=== PATIENT | female | born 1945 | race Caucasian/White ===

== ENCOUNTER 2019-12-11 04:41 | Outpatient (CLI) | payer BC, OTHER ==
[2019-12-12 14:01] LABS: SARS-CoV-2 MS2 Positive; SARS-CoV-2 N Gene Negative; SARS-CoV-2 S Gene Negative; SARS-CoV-2 orf1ab Negative
== END 2019-12-11 04:42 | disposition home or self-care (01) ==
LOC: LABBT 04:41
PROVIDERS: ATTEND Ophthalmology Retina Specialist
DX: Z01.812 Encounter for preprocedural laboratory examination (principal); Z11.59 Encounter for screening for other viral diseases; H35.371 Puckering of macula, right eye
CPT/HCPCS: 87635; U0003

== ENCOUNTER 2019-12-14 05:54 | Day surgery (SDC) | payer BC ==
[2019-12-08 11:30] VITALS: BMI 24.2
[2019-12-14] MEDS ORDERED: Fluorouracil 100 MG, Enoxaparin Sodium 25 MG, EPINEPHrine 0.3 MG in Ophthalmic Irrigati... IRR SCH (06:00)
[2019-12-14] MEDS ORDERED: Cyclopentolate 1% Opth Drop 2 ML BOT ONE (06:00)
[2019-12-14] MEDS ORDERED: Phenylephrine 2.5% Ophth Soln 5 ML BOT ONE (06:00)
[2019-12-14] MEDS ORDERED: Fentanyl 100 MCG/2 ML VIAL ONE (06:14)
[2019-12-14] MEDS ORDERED: Midazolam HCl 2 mg/2 ml Vial ONE (06:14)
[2019-12-14] MEDS ORDERED: PROPOFOL 20 ML ONE (06:15)
[2019-12-14] MEDS ORDERED: CEFAZOLIN 1 GM VIAL ONE (12:24)
[2019-12-14] MEDS ORDERED: Indocyanine Green 25 MG/10 ML VIAL ONE (12:24)
[2019-12-14] MEDS ORDERED: Enoxaparin Sodium 30 MG/0.3 ML SYRINGE ONE (12:24)
[2019-12-14] MEDS ORDERED: Lidocaine 1% PF 5 ML VIAL ONE (12:24)
[2019-12-14] MEDS ORDERED: Lidocaine 4% PF 5 ML AMP ONE (12:24)
[2019-12-14] MEDS ORDERED: Bupivacaine PF 0.75% SDV 10 ML ONE (12:24)
[2019-12-14] MEDS ORDERED: Maxitrol 0.1% Opth Oint 3.5 GM TUBE ONE (12:24)
--- NOTE | 2019-12-15 13:28 | OP ---
DATE OF PROCEDURE: 12/14/2019 PREOPERATIVE DIAGNOSIS: Epiretinal membrane, right eye. POSTOPERATIVE DIAGNOSIS: Epiretinal membrane, right eye. PROCEDURES PERFORMED: Pars plana vitrectomy and membrane peel, right eye. ANESTHESIA: Local with monitored anesthesia care. DESCRIPTION OF PROCEDURE: The patient was identified in the preoperative holding area. Appropriate informed consent for the planned surgical procedure on the right eye had been obtained. The patient was transported to the operative suite. Appropriate cardiopulmonary monitoring was established. Local anesthesia was obtained. Retrobulbar modified Van Lint lid block using 50:50 mixture of 4% lidocaine and 0.75% bupivacaine. The patient was prepped and draped in usual sterile manner for ophthalmic surgery on the right eye. Lid speculum was placed in the right eye. A 25-gauge trocar was placed in the conjunctiva and sclera superotemporally, inferotemporally, and supranasally. Light pipe vitreous cutter inserted to the eye. Core vitrectomy was performed. Indocyanine green dye was infused on the posterior pole x1 identifying the epiretinal membrane. This was elevated. Edges were elevated using membrane scraper and peeled across the macula using end-gripping forceps. Indirect ophthalmoscopy was used to exam the retina 360 degrees. No holes, breaks, or tears were identified. Trocars were removed. The eye was noted to retain pressure well. Retrobulbar Kenalog and subconjunctival Ancef were placed. Antibiotic ointment was placed. Eye was patched and shielded. The patient was taken to postop recovery unit in good condition having suffered no immediate perioperative complications. The patient was instructed to keep patch shield on, avoid lifting or bending. Followup appointment with Dr. Rosario. Job ID: [id number]
== END 2019-12-14 08:25 | disposition home or self-care (01) ==
LOC: SDC 05:54
PROVIDERS: ATTEND Ophthalmology Retina Specialist
PROC: 08NE3ZZ Release Right Retina, Percutaneous Approach (ICD-10-PCS; principal; 2019-12-14)
PROC: 08T43ZZ Resection of Right Vitreous, Percutaneous Approach (ICD-10-PCS; principal; 2019-12-14)
DX: H35.371 Puckering of macula, right eye (principal); Z79.02 Long term (current) use of antithrombotics/antiplatelets; Z79.82 Long term (current) use of aspirin; Z79.899 Other long term (current) drug therapy; Z88.0 Allergy status to penicillin; Z88.8 Allergy status to other drugs, medicaments and biological substances
CPT/HCPCS: J0171; J0690; J1650; J2001; J2250; J2704; J3010; J3490; J9190

== ENCOUNTER 2023-08-04 12:24 | Outpatient (CLI) | payer BC | END 2023-08-04 12:25 | disposition home or self-care (01) | LOC: RAD 12:24 | PROVIDERS: ATTEND Internal Medicine Critical Care Medicine | DX: R06.00 Dyspnea, unspecified (principal) | CPT/HCPCS: 71046 ==

== ENCOUNTER 2024-03-10 14:04 | Outpatient (CLI) | payer BC | END 2024-03-10 14:05 | disposition home or self-care (01) | LOC: ULT 14:04 | PROVIDERS: ATTEND Nurse Practitioner Family | DX: R20.0 Anesthesia of skin (principal); R20.2 Paresthesia of skin ==

== ENCOUNTER 2024-03-16 11:16 | Outpatient (CLI) | payer BC | END 2024-03-16 11:17 | disposition home or self-care (01) | LOC: ULT 11:16 | PROVIDERS: ATTEND Internal Medicine Nephrology | DX: N18.30 Chronic kidney disease, stage 3 unspecified (principal); K76.0 Fatty (change of) liver, not elsewhere classified; N28.1 Cyst of kidney, acquired; N26.1 Atrophy of kidney (terminal) | CPT/HCPCS: 76770 ==

== ENCOUNTER 2024-08-03 13:02 | Outpatient (CLI) | payer BC | END 2024-08-03 13:03 | disposition home or self-care (01) | LOC: RAD 13:02 | PROVIDERS: ATTEND Internal Medicine Critical Care Medicine | DX: R06.00 Dyspnea, unspecified (principal) | CPT/HCPCS: 71046 ==